=== PATIENT | male | born 1980 | race Caucasian/White ===

== ENCOUNTER 2023-09-22 01:24 | Emergency (ER) | payer SELFPAY ==
[2023-09-22] VITALS (9 sets, daily range): BP systolic 114–167; BP diastolic 81–116; PULSE 78–112; RESP 17–25; TEMP 36.4–37.2; O2SAT 95–100
--- NOTE | ~2023-09-22 | XR_ITS ---
Portable chest x-ray Comparison: Chest pain Clinical History: None Findings: Lungs are clear, without focal consolidation or pleural effusion. Cardiomediastinal silho uette is unremarkable. Bones and soft tissues are unremarkable. Impression: Normal chest. Reviewed, dictated and finalized at location M. Impression: Normal chest.
--- NOTE | 2023-09-22 01:32 | ECG_ITS ---
Test Date: 2023-09-22 01:34:22 Measurements Intervals [place] Rate: 96 P: 73 IA: 172 QRS: 79 QRSD: 96 T: 63 QT: 340 QTc: 430 Interpretive Statements SINUS RHYTHM BASELINE ARTIFACT- V1, V3, V6 NORMAL ECG No previous ECG available for comparison Electronically Signed On 09-22-2023 08:38:13 CDT by Geovani Beckett D.O.
[2023-09-22 01:50] LABS: Basophils Absolute Auto 0.1 K/mm3 (0.0-0.1); Basophils Percent Auto 0.7 % (0.2-1.2); Eosinophils Absolute Auto 0.1 K/mm3 (0-0.3); Hematocrit 40.9 % (42.0-52.0); Hemoglobin 14.5 g/dL (14.0-18.0); Immature Granulocyte Absolute 0.07 K/mm3 (0.00-0.031); Immature Granulocyte Percent A 0.5 % (0-0.5); Lymphocytes Absolute Auto 4.78 K/mm3 (0.9-3.2); Lymphocytes Percent Auto 36.2 % (18.3-44.2); Mean Corpuscular HGB Conc 35.5 g/dl (32-36); Mean Corpuscular Hemoglobin 31.3 pg (26-34); Mean Corpuscular Volume 88.3 fl (80-100); Mean Platelet Volume 10.3 fl (7.4-10.4); Monocytes Absolute Auto 0.7 K/mm3 (0.1-0.6); Monocytes Percent Auto 5.5 % (2.6-8.5); Neutrophils Absolute Auto 7.4 K/mm3 (1.3-6.7); Neutrophils Percent Auto 56.1 % (45.5-73.1); Platelet Count Result 354 k/mm3 (150-375); Red Blood Count 4.63 M/mm3 (4.6-6.20); Red Cell Distribution Width 14.2 % (11.5-14.5); White Blood Count 13.2 K/mm3 (4.5-10.0)
[2023-09-22 01:52] LABS: Appearance Urine Clear (Clear); Bilirubin Urine Negative (Negative); Blood Urine Negative (Negative); Color Urine Yellow (Yellow); Glucose Urine UA Negative (Negative); Ketones Urine Negative (Negative); Leukocyte Esterase Ur Negative LEU/UL (Negative); Nitrate Urine Negative (Negative); Protein Urine Negative (Negative); Specific Grav Ur 1.007 (1.001-1.035); Urobilinogen Urine 0.2 mg/dL (<2.0); pH Urine 5.5 (5.0-9.0)
[2023-09-22] MEDS: diphenhydrAMINE HCl INJ 50 MG/ML VIAL 25 MG IV PUSH (01:59)
[2023-09-22] MEDS: LORazepam INJ (*CRX) 2 MG/ML VIAL IV PUSH (01:59)
--- NOTE | 2023-09-22 01:59 | ED.GENADULT ---
HPI - General Adult General Chief complaint: Shortness of Breath/Dyspnea Stated complaint: sob, etoh, ped custody Time Seen by Provider: 09/22/23 01:25 History of Present Illness HPI narrative: 38-year-old male presents to the emergency department for evaluation for being found wandering down the middle of the street. Patient was transported to the emergency department by EMS and patient became combative with EMS. Upon arrival emergency department patient was still aggressive and was insulting and threatening staff. Related Data Allergies Allergy/AdvReac Type Severity Reaction Status Date / Time No Known Allergies Allergy Verified 09/22/23 01:45 Review of Systems Review of Systems: All systems reviewed & are unremarkable except as noted in HPI and below Exam Narrative: APPEARANCE: Well. HEAD: normocephalic, atraumatic. EYES: PERRLA/EOMI, conjunctivae clear. NOSE: Normal no drainage EARS:TMS clear with good light reflex. THROAT: Pharynx clear, no exudate. NECK: Supple. No adenopathy, no masses. RESPIRATORY: Airway patent, respirations nonlabored. Clear to auscultation bilaterally, no rales, rhonchi, wheezing. CARDIOVASCULAR: Regular rate and rhythm without murmurs rubs or gallops. ABDOMINAL: Soft, nontender, nondistended, normal bowel sounds MUSCULOSKELETAL: Moves all extremities. Strength/ROM intact, No edema, No calf tenderness. NEURO: Alert. Cranial nerves II through XII intact. Good gait. Good coordination SKIN: Warm, dry. Normal Color PSYCHIATRIC: Aggressive Course Vital Signs Vital signs: Vital Signs Temperature 98 F 09/22/23 01:24 Pulse Rate 105 H 09/22/23 01:24 Respiratory Rate 25 H 09/22/23 01:24 Blood Pressure 167/116 H 09/22/23 01:24 Pulse Oximetry 98 09/22/23 01:24 Oxygen Delivery Room Air 09/22/23 01:24 Temperature 98.1 F 09/22/23 04:07 Pulse Rate 94 09/22/23 04:07 Respiratory Rate 18 09/22/23 04:07 Blood Pressure 114/82 09/22/23 04:07 Pulse Oximetry 98 09/22/23 04:07 Oxygen Delivery Room Air 09/22/23 01:35 Medical Decision Making MDM Narrative Medical decision making narrative: 42-year-old male to the emergency department for evaluation for altered mental status. Patient did require Haldol and Ativan and to help with aggressiveness and agitation in the emergency department. Patient had normal labs and no evidence acute abnormality or explanation for his altered mental status. Patient was intoxicated. After patient was treated with his Haldol and Ativan patient did have an extended period rest. Patient woke up he was more alert and appropriate. Patient was taken into police custody. Prior to discharge patient was up to the results of his workup. All questions concerns were addressed patient was well-appearing. Differential Diagnosis Differential Diagnosis: COVID, alcohol intoxication, drug intoxication, schizophrenia Vital Signs Vital Signs: Vital Signs Temperature 98 F 09/22/23 01:24 Pulse Rate 105 H 09/22/23 01:24 Respiratory Rate 25 H 09/22/23 01:24 Blood Pressure 167/116 H 09/22/23 01:24 Pulse Oximetry 98 09/22/23 01:24 Oxygen Delivery Room Air 09/22/23 01:24 Temperature 98.1 F 09/22/23 04:07 Pulse Rate 94 09/22/23 04:07 Respiratory Rate 18 09/22/23 04:07 Blood Pressure 114/82 09/22/23 04:07 Pulse Oximetry 98 09/22/23 04:07 Oxygen Delivery Room Air 09/22/23 01:35 Lab Data Lab results reviewed: Yes I reviewed the patient's lab results. 09/22/23 01:34 09/22/23 01:34 Labs: Lab Results 09/22/23 09/22/23 09/22/23 Range/Units 01:34 01:35 01:39 WBC 13.2 H (4.5-10.0) K/mm3 RBC 4.63 (4.6-6.20) M/mm3 Hgb 14.5 (14.0-18.0) g/dL Hct 40.9 L (42.0-52.0) % MCV 88.3 (80-100) fl MCH 31.3 (26-34) pg MCHC 35.5 (32-36) g/dl RDW 14.2 (11.5-14.5) % Plt Count 354 (150-375) k/mm3 MPV 10.3 (7.4-10.4) fl Immature Gran % (Aut
[2023-09-22] MEDS: HALOPERIDOL LACTATE 5 MG/ML VIAL IM (02:00)
--- NOTE | 2023-09-22 02:00 | PC.NURSE ---
pt began to get aggressive with staff, edp dr. flowers, police specialist with patient, and ed security. pt started to spit and raise his voice. pt started to yell racial slurs at staff. pt began started screaming, you aren't even going to offer me water . this rn tried to educate patient about how to act in the emergency room. pt started to yell at this rn. this rn attempted to re-educate patient. edp dr. flowers verbal ordered medications to calm patient down.
[2023-09-22 02:02] LABS: Alanine Aminotransferase 26 U/L (6-50); Albumin Level 4.7 g/dL (3.5-5.1); Alkaline Phosphatase 81 U/L (38-126); Anion Gap 15 mmol/L (4-12); Aspartate Amino Transferase 36 U/L (17-59); Bilirubin,Total 0.7 mg/dL (0.2-1.3); Blood Urea Nitrogen 16 mg/dL (9-20); Calcium 8.7 mg/dL (8.4-10.2); Carbon Dioxide 19 mmol/L (22-30); Chloride 105 mmol/L (98-107); Estimated CRCL calculation 81 ml/min; Estimated Glomerular Filt Rate > 60; Glucose 115 mg/dL (65-110); Potassium 3.9 mmol/L (3.4-5.0); Sodium 139 mmol/L (137-145)
[2023-09-22 02:03] LABS: Ethanol 182 mg/dL (<10)
[2023-09-22 02:09] LABS: Add Urine Microscopic? NO
[2023-09-22] MEDS: SODIUM CHLORIDE 0.9% IV 1,000 ML 999 ML IV CONT (02:11)
--- NOTE | 2023-09-22 02:13 | PC.NURSE ---
0200: This RN was in pts room when he stated he wanted us to take pictures of his bruises from the manager aviation handcuffing him. This RN stated we are in the process of medically clearing him and cannot take a picture of his bruises on our phones due to protocols and laws. Pt stated Do I need to go crazy for you guys to take a picture . college professor heard pt yelling and came into room and explained that we have other pts in the emergency department and need him to calm down. Pt started shaking the bed, yelling, getting combative, and verbally threatened staff. Pt was placed in bilateral hand cuffs by police department. Dr. Nuñez verbally ordered 2mg of Ativan IV, 5mg of Haldol Inj, and IV normal saline 1L bag. ED security was called by this RN. JOSE Zamarripa documented meds given and chemical restraints.
--- NOTE | 2023-09-22 02:15 | PC.NURSE ---
pt placed in bilateral wrist cuffs by police officers.
[2023-09-22 02:23] LABS: Amphetamine Screen Urine Negative (Negative); Barbiturate Screen Urine Negative (Negative); Benzodiazepines Screen Urine Negative (Negative); Cannabinoid Screen Urine Negative (Negative); Cocaine Screen Urine Negative (Negative); Methadone Screen Urine Negative (Negative); Opiate Screen Urine Negative (Negative); Phencyclidine Screen Urine Negative (Negative)
[2023-09-22 02:28] LABS: Influenza A QL RT-PCR Negative (Negative); Influenza B QL RT-PCR Negative (Negative); RSV RNA, RT-PCR Negative (Negative); SARS-CoV-2 RNA PCR Negative (Negative)
[2023-09-22 04:10] LABS: Troponin I < 0.012 ng/mL (0.000-0.034)
--- NOTE | 2023-09-22 04:51 | PC.NURSE ---
[employer] form was filled out by and dr. flowers. This RN copied sheet and placed on chart.
== END 2023-09-22 04:53 ==
LOC: ANHED 04:45
PROVIDERS: Emergency Provider Emergency Medicine
DX: R45.6 Violent behavior (principal); F10.129 Alcohol abuse with intoxication, unspecified; Y90.6 Blood alcohol level of 120-199 mg/100 ml; T14.8XXA Other injury of unspecified body region, initial encounter; R07.89 Other chest pain; Z11.52 Encounter for screening for COVID-19; X58.XXXA Exposure to other specified factors, initial encounter
CPT/HCPCS: 36415; 71045; 80053; 80307; 81003; 84443; 84484; 85025; 87637; 93005; 96361; 96372; 96374; 96375; 99284; J1200; J1630; J2060; J7030